=== PATIENT | female | born 1950 ===

== ENCOUNTER 2025-07-05 12:07 | Outpatient (REF) | payer MEDICARE, SELFPAY ==
[2025-07-05 14:54] LABS: RBC 0-2 HPF (0-2); WBC >50 HPF (0-5)
== END 2025-07-05 12:08 | disposition home or self-care (01) ==
LOC: LBN 12:07
PROVIDERS: PCP Physician Assistant Medical; Visit Provider Physician Assistant Medical
DX: R82.90 Unspecified abnormal findings in urine (principal)
CPT/HCPCS: 81015; 87086